=== PATIENT | male | born 1995 ===

== ENCOUNTER 2021-09-26 11:21 | Outpatient (REF) | payer OTHER, SELFPAY ==
--- NOTE | ~2021-09-26 | XR_ITS ---
EXAMINATION: XR ANKLE, RIGHT CLINICAL INFORMATION: Right ankle pain. COMPARISON: None TECHNIQUE: AP, lateral, and mortise views of the right ankle. FINDINGS: Soft tissue swelling is present laterally. No bony abnormality is seen. No joint effusion is present. XR/XR ankle RT min 3V IMPRESSION: Lateral soft tissue swelling without fracture.
== END 2021-09-26 11:22 | disposition home or self-care (01) ==
LOC: HO.HOSX 11:21
PROVIDERS: Visit Provider Physician Assistant
DX: S93.401A Sprain of unspecified ligament of right ankle, initial encounter (principal)
CPT/HCPCS: 73610; 99202